=== PATIENT | female | born 1990 | race Two or more races ===

== ENCOUNTER 2024-10-21 14:06 | Emergency (ER) | payer OTHER ==
[~2024-10-21] VITALS: Ht 149.9 cm; Wt 77.0 kg
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
[2024-10-21] MEDS: ACETAMINOPHEN 325 MG TAB PO ONE (14:44)
[2024-10-21 15:26] LABS: Basophils # (auto) 0 10 ^3/uL (0-0.2); Eosinophils # (auto) 0 10 ^3/uL (0-0.8); Eosinophils % (auto) 0.4 % (0.0-7.0); Hemoglobin 9.5 g/dL (12.2-16.2); Monocytes # (auto) 0.3 10 ^3/uL (0-1.3); Red Cell Distribution Width 20.4 % (11.8-14.3); White Blood Cell 4.2 10^3/uL (4.4-10.8)
[2024-10-21 15:29] LABS: Hematocrit 30.1 % (36.0-46.0); Lymphocytes # (auto) 1.8 10 ^3/uL (0.4-5.4); Lymphocytes % (auto) 43.9 % (10.0-50.0); Mean Corpuscular Hemoglobin 23.2 pg (28.0-32.0); Mean Corpuscular Hgb Conc. 31.7 g/dL (32.0-36.0); Mean Corpuscular Volume 73.1 fL (80.0-100.0); Monocytes % (auto) 6.5 % (0.0-12.0); Neutrophils % (auto) 48.2 % (37.0-80.0); Platelet Count (auto) 380 10^3/uL (140-450); Red Blood Cells 4.12 10^6/uL (4.0-5.20)
[2024-10-21 15:42] LABS: Urine Bacteria None Seen /hpf (None Seen)
[2024-10-21 15:46] LABS: Alanine Aminotransferase 15 U/L (7-40); Albumin 4.4 g/dL (3.2-4.8); Alkaline Phosphatase 63 U/L (46-116); Anion Gap 8 (5-15); Aspartate Aminotransferase 17 U/L (13-40); BUN/Creatinine Ratio 10.7 (10.0-20.0); Blood Urea Nitrogen 9 mg/dL (9-23); Calcium 9.6 mg/dL (8.7-10.4); Carbon Dioxide 26 mmol/L (20-31); Chloride 107 mmol/L (98-107); Glucose 89 mg/dL (74-106); Sodium 141 mmol/L (136-145)
[2024-10-21 15:47] LABS: Bilirubin, Total 0.2 mg/dL (0.2-1.0); Potassium 3.3 mmol/L (3.5-5.1)
[2024-10-21 15:57] LABS: Urine Blood 2+ /uL (Negative); Urine Clarity Clear (Clear); Urine Color Colorless (Yellow); Urine Mucus FEW (None Seen); Urine Protein, UAD Negative (Negative); Urine Squamous Epithelial Cell FEW /hpf (<5); Urine Urobilinogen Normal (Negative); Urine WBC 1 /hpf (0 - 5); Urine pH 6.5 (5.0-9.0)
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
[2024-10-21 17:44] VITALS: PULSE 83; RESP 18; O2SAT 100
[2024-10-21 17:47] VITALS: BP 138/83; PULSE 73; RESP 16; TEMP 98.4; O2SAT 100
== END 2024-10-21 17:43 | disposition home or self-care (01) ==
LOC: EDBD 14:06 → ER 14:06
DX: S93.401A Sprain of unspecified ligament of right ankle, initial encounter (principal); S63.92XA Sprain of unspecified part of left wrist and hand, initial encounter; Z88.8 Allergy status to other drugs, medicaments and biological substances; Z91.040 Latex allergy status; V89.2XXA Person injured in unspecified motor-vehicle accident, traffic, initial encounter; Y93.89 Activity, other specified; Y92.410 Unspecified street and highway as the place of occurrence of the external cause; Y99.8 Other external cause status
CPT/HCPCS: 36415; 71045; 72100; 73090; 73600; 80053; 81001; 81025; 84484; 85025